=== PATIENT | female | born 1995 | race Caucasian/White ===

== ENCOUNTER 2024-12-03 11:53 | Emergency (ER) | payer SELFPAY ==
[2024-12-03] MEDS ORDERED: IBUPROFEN 400 MG TAB ONE (13:03)
[2024-12-03] MEDS ORDERED: CEFTRIAXONE 250 MG/VIAL ONE (13:03)
[2024-12-03] MEDS ORDERED: AZITHROMYCIN 250 MG TAB ONE (13:03)
[2024-12-03] MEDS ORDERED: LIDOCAINE HCL JELLY 2% 6 ML SYRINGE TOP ONE (13:04)
[2024-12-03] MEDS ORDERED: PEN G BENZ LA 1.2MU/2ML SYRINGE IM ONE (13:04)
[2024-12-03] MEDS ORDERED: LIDOCAINE 1% MPF 2 ML AMPULE ONE (13:05)
--- NOTE | 2024-12-03 13:49 | ER ---
Nurse's Notes [facility] Name: Rita Noyola Age: 29 yrs Sex: Female : 1995 Arrival Date: 12/03/2024 Time: 11:53 Bed 26 Private MD: Diagnosis: Unspecified sexually transmitted disease;Rash and other nonspecific skin eruption Presentation: 12/03 12:10 Chief complaint: Patient states: RASH ALL OVER BODY AND SORES ON GROIN, BUTTOCKS. db SYMPTOMS X 6 WEEKS. CONCERNED HAS HERPES OR SYPHILIS. STATES NOW HAS A COUGH WELL. Coronavirus screen: Client denies travel out of the [place] in the last 14 days. At this time, the client does not indicate any symptoms associated with coronavirus-19. Ebola Screen: Patient negative for fever greater than or equal to 101.5 degrees Fahrenheit, and additional compatible Ebola Virus Disease symptoms Patient denies exposure to infectious person. Patient denies travel to an Ebola-affected area in the 21 days before illness onset. No symptoms or risks identified at this time. Initial Sepsis Screen: Does the patient meet any 2 criteria? No. Patient's initial sepsis screen is negative. Does the patient have a suspected source of infection? No. Patient's initial sepsis screen is negative. Risk Assessment: Do you want to hurt yourself or someone else? Patient reports no desire to harm self or others. Onset of symptoms was December 03, 2024. 12:10 Method Of Arrival: Ambulatory db 12:10 Acuity: KATHARINA 3 db Triage Assessment: 12:11 General: Appears in no apparent distress. uncomfortable, Behavior is cooperative, db anxious. Pain: Complains of pain in buttocks and pelvis. Neuro: Level of Consciousness is awake, alert, obeys commands, Oriented to person, place, time, situation. Respiratory: Airway is patent Respiratory effort is even, unlabored, Respiratory pattern is regular, symmetrical. 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 - Infectious Disease History:: Denies. - Social history:: Smoking status: Patient reports the use of cigarette tobacco products, smokes one-half pack cigarettes per day, Reported history of juuling and/or vaping. - Family history:: not pertinent. - Hospitalizations: : No recent hospitalization is reported. Screenin:55 [facility] ED Fall Risk Assessment (Adult) History of falling in the last 3 months, iw including since admission No falls in past 3 months (0 pts) Confusion or Disorientation No (0 pts) Intoxicated or Sedated No (0 pts) Impaired Gait No (0 pts) Mobility Assist Device Used No (0 pt) Altered Elimination No (0 pt) Score/Fall Risk Level 0 - 2 = Low Risk Oriented to surroundings, Maintained a safe environment. Abuse screen: Denies threats or abuse. Nutritional screening: No deficits noted. Tuberculosis screening: No symptoms or risk factors identified. Assessment: 12:53 General: Appears in no apparent distress. Behavior is calm, cooperative. Pain: iw Complains of pain in pelvis and buttocks. Neuro: Level of Consciousness is awake, alert, obeys commands, Oriented to person, place, time, situation, Moves all extremities. Full function. Cardiovascular: Patient's skin is warm and dry. Respiratory: Airway is patent Respiratory effort is even, unlabored. GI: Abdomen is flat, non-distended. Derm: Skin is intact, is healthy with good turgor. Derm: Rash noted that is red, on abdomen Reports. Musculoskeletal: Range of motion: intact in all extremities. Vital Signs: 12:10 BP 117 / 84; Pulse 111; Resp 18; Temp 97.9; Pulse Ox 100% ; db ED Course: 12:00 Patient arrived in ED. iw 12:02 Julito Franklin MD is Attending Physician. rn 12:11 Triage completed. db 12:11 Arm band placed on Patient placed in an exam room. db 12:37 Rigoberto Noland, RJ is Primary Nurse. rg5 13:33 No provider procedures requiring assistance completed. Patient did not have IV access iw during this emergency room visit. Administered Medications: 13:30 Drug: metroNIDAZOLE PO 2 grams PO once Route: PO; iw 13:31 Drug: penicillin G Benzathine IM 2.4 million units IM once Route: IM; Site: right iw ventrogluteal; 13:31 Drug: AZITHromycin PO 1 grams PO once Route: PO; iw 13:31 Drug: Rocephin (cefTRIAXone) IM 250 mg IM once Route: IM; Site: left ventrogluteal; iw Medication: 12:55 VIS not applicable for this client. iw Outcome: 13:48 Discharge ordered by . rn 14:13 Patient left the ED. iw Signatures: Edith Keen RN RN Julito Burgos MD MD rn Benton, Danielle, RN Rigoberto Davis RN RN rg5
--- NOTE | 2024-12-03 13:49 | EDPHYS ---
Physician Documentation [facility] Name: Rita Noyola Age: 29 yrs Sex: Female : 1995 Arrival Date: 12/03/2024 Time: 11:53 Bed 26 Private MD: ED Physician Julito Franklin HPI: 12/03 13:14 This 29 yrs old Female presents to ER via Ambulatory with complaints of STD Exposure. rn 13:14 Patient reports about 6 weeks ago began with rash. Reports started with a bumpy rash rn near vagina and labia and now rash on lower torso. Rash itches a little bit and slightly painful. No vaginal discharge. Patient states could have been exposed to herpes and syphilis. Patient reports has IV drug user.. 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 - Infectious Disease History:: Denies. - Social history:: Smoking status: Patient reports the use of cigarette tobacco products, smokes one-half pack cigarettes per day, Reported history of juuling and/or vaping. - Family history:: not pertinent. - Hospitalizations: : No recent hospitalization is reported. ROS: 13:14 Constitutional: Negative for fever, chills, and weight loss, Cardiovascular: Negative rn for chest pain, palpitations, and edema, Respiratory: Negative for shortness of breath, cough, wheezing, and pleuritic chest pain, Abdomen/GI: Negative for abdominal pain, nausea, vomiting, diarrhea, and constipation, Skin: Positive for rash to vulva and torso Neuro: Negative for headache, weakness, numbness, tingling, and seizure, Exam: 13:42 Constitutional: This is a well developed, well nourished patient who is awake, alert, rn and in no acute distress. Cardiovascular: Tachycardic, regular. No pulse deficits. Skin: Macular rash on torso, no rash on palms and soles. Single ulceration right labia. No herpes lesions noted. No desquamation. No bullae Vital Signs: 12:10 BP 117 / 84; Pulse 111; Resp 18; Temp 97.9; Pulse Ox 100% ; db MDM: 12:02 Medical Screening Exam initiated rn 13:47 Differential diagnosis: Secondary syphilis, STD. Data reviewed: vital signs, nurses rn notes, and as a result, I will discharge patient. Counseling: I had a detailed discussion with the patient and/or guardian regarding the historical points, exam findings, and any diagnostic results supporting the discharge/admit diagnosis, the need for outpatient follow up, to return to the emergency department if symptoms worsen or persist or if there are any questions or concerns that arise at home. Special discussion: I discussed with the patient/guardian in detail that at this point there is no indication for admission to the hospital. It is understood, however, that if the symptoms persist or worsen the patient needs to return immediately for re-evaluation. Based on the history and exam findings, there is no indication for further emergent testing or inpatient evaluation. I discussed with the patient/guardian the need to see the primary care provider for further evaluation of the symptoms. ED course: Patient to follow-up at STD clinic. Will treat empirically for STD prophylaxis as well as penicillin for possible syphilis. Will report possibility of syphilis to health department.. Administered Medications: 13:30 Drug: metroNIDAZOLE PO 2 grams PO once Route: PO; iw 13:31 Drug: penicillin G Benzathine IM 2.4 million units IM once Route: IM; Site: right iw ventrogluteal; 13:31 Drug: AZITHromycin PO 1 grams PO once Route: PO; iw 13:31 Drug: Rocephin (cefTRIAXone) IM 250 mg IM once Route: IM; Site: left ventrogluteal; iw Disposition Summary: 12/03/24 13:48 Discharge Ordered Notes: Location: Home rn Problem: new rn Symptoms: are unchanged rn Condition: Stable rn Diagnosis - Unspecified sexually transmitted disease rn - Rash and other nonspecific skin eruption rn Followup: rn - With: Private Physician - When: As needed - Reason: Recheck today's complaints, Re-evaluation by your physician Discharge Instructions: - Discharge Summary Sheet rn - Rash, Adult rn - Preventing Sexually Transmitted Infections, Adult rn Forms: - Medication Reconciliation Form rn - Antibiotic yarn weight and strength tester - Prescription Opioid Use rn - Patient Portal Instructions rn - Leadership Thank You Letter rn Prescriptions: - Acyclovir 200 mg Oral Capsule - take 1 capsule ORAL route 5 times per day; 50 capsule; Refills: 0, Product rn Selection Permitted - Doxycycline Monohydrate 100 mg Oral Tablet - take 1 tablet ORAL route every 12 hours for 10 days; 20 tablet; Refills: 0, rn Product Selection Permitted Signatures: Edith Keen RN RN iw Nieto, Roman, MD MD rn Benton, Danielle, RN RN db Corrections: (The following items were deleted from the chart) 13:43 13:14 Constitutional: Negative for fever, chills, and weight loss, obed clay
[2024-12-03 22:23] VITALS: BP 117/84; TEMP 97.9; O2SAT 100
== END 2024-12-03 14:13 | disposition home or self-care (01) ==
LOC: ER 11:53
DX: A64 Unspecified sexually transmitted disease (principal)
CPT/HCPCS: 96372; 99284; J0561; J0696